=== PATIENT | male | born 1990 | race American Indian/Alaskan Native ===

== ENCOUNTER 2018-05-20 20:03 | Emergency (ER) | payer SELFPAY ==
[2018-05-20 21:37] LABS: Bacteria,Urine 1+ /HPF (Negative); Bilirubin,Urine NEG (Negative); Blood,Urine NEG (Negative); Color,Urine Yellow (Yellow); Mucus,Urine FEW /HPF; Protein,Urine <15 mg/dL mg/dL (Negative)
[2018-05-20 21:38] LABS: WBC,Urine > 182.0 /HPF (0.0-6.0)
[2018-05-21 00:05] VITALS: BP 146/86
[2018-05-21] MEDS ORDERED: ROCEPHIN IM ONE (00:17)
[2018-05-21] MEDS ORDERED: ZITHROMAX PO ONE (00:17)
[2018-05-21] MEDS ORDERED: XYLOCAINE 1% MPF 5 mL INFILTRATI ONE (00:17)
--- NOTE | 2018-05-21 00:21 | Emergency Department Report ---
ED Male HPI - General Chief complaint: Urogenital-Male Stated complaint: CHEST PAIN/PAINFUL URINATION Time Seen by Provider: 05/20/18 23:44 Source: patient Mode of arrival: Ambulatory Limitations: No Limitations - History of Present Illness Initial comments: 27-year-old -[place] male comes to the emergency room reporting had burning in his chest for one hour prior to arrival and relieved by Tums. Patient denies any nausea no vomiting no diaphoresis no dizziness no change of vision no radiation of the pain. Patient also complains of painful urination 3 days with yellowish discharge. Patient reports that he is sexually active with females unprotected one partner in the last 6 months. He has not ever have an STD. He denies any fever chills no nausea no vomiting no lymphs adenopathy in the groin area. MD Complaint: penile discharge, dysuria -: days(s) (3) Severity: severe Severity scale (0 -10): 10 Quality: burning Consistency: constant Improves with: none Worsens with: none discharge, dysuria. denies: swelling, mass, blood in urine, fever, nausea/ vomiting, incontinence - Related Data Sexually active: Yes (females unprotected) Previous Rx's Medication Instructions Recorded Last Taken Type Doxycycline [Vibramycin CAP] 100 mg PO Q12HR 10 Days #20 capsule 05/21/18 Unknown Rx Allergies Allergy/AdvReac Type Severity Reaction Status Date / Time shellfish derived Allergy Hives Verified 05/20/18 21:18 ED Review of Systems ROS: Stated complaint: CHEST PAIN/PAINFUL URINATION Other details as noted in HPI Genitourinary: dysuria, discharge ED Past Medical Hx - Past Medical History Previous Medical History?: No - Surgical History Past Surgical History?: No - Social History Smoking Status: Never Smoker Substance Use Type: None - Medications Home Medications: Home Medications Medication Instructions Recorded Confirmed Last Taken Type Doxycycline [Vibramycin CAP] 100 mg PO Q12HR 10 Days #20 capsule 05/21/18 Unknown Rx ED Physical Exam - General Limitations: No Limitations General appearance: alert, in no apparent distress - Head Head exam: Present: atraumatic, normocephalic - Eye Eye exam: Present: EOMI - exam: Present: urethral discharge (yellowish), circumcision. Absent: testicular tenderness, scrotal swelling External exam: Absent: swelling, lesions, bleeding - Extremities Exam Extremities exam: Present: normal inspection - Neurological Exam Neurological exam: Present: alert, oriented X3 - Psychiatric Psychiatric exam: Present: normal affect, normal mood - Skin Skin exam: Present: warm, dry, intact, normal color. Absent: rash ED Course Vital Signs 05/20/18 05/21/18 20:08 00:04 Temperature 99.1 F Pulse Rate 85 86 Respiratory 18 18 Rate Blood Pressure 148/83 Blood Pressure 146/86 [Right] O2 Sat by Pulse 95 97 Oximetry ED Medical Decision Making - Medical Decision Making Patient has been evaluated by this provider fast track. Chlamydia and gonorrhea samples have been obtained and sent to the lab. Rocephin and azithromycin has been ordered. We'll discharge patient on doxycycline 100 mg twice a day for 10 days. Discussed the patient he can bring his ID to medical records to obtain his culture results in 5-7 days. Discussed patient he needs to follow-up with the health department to have further testing for HIV and hepatitis B hepatitis C syphilis. Patient verbalizes understanding Critical care attestation.: If time is entered above; I have spent that time in minutes in the direct care of this critically ill patient, excluding procedure time. ED Disposition Clinical Impression: Penile discharge, STD (sexually transmitted disease), Atypical chest pain, Heartburn symptom Disposition: DC-01 TO HOME OR SELFCARE Is pt being admited?: No Does the pt Need Aspirin: No Condition: Stable Instructions: Chest Pain (ED), Safe Sex (ED), Sexually Transmitted Diseases (ED ) Additional Instructions: Complete antibiotics as prescribed. It is very important for you to follow-up at the health department so he can get further testing for HIV, hepatitis B, hepatitis C, syphilis and herpes. I have listed several of their numbers below. He can also bring your ID to medical records to obtain your culture results in 5-7 days. Prescriptions: Doxycycline [Vibramycin CAP] 100 mg PO Q12HR 10 Days #20 capsule Referrals: PRIMARY CARE, [Primary Care Provider] - 3-5 Days [facility] [Outside] - 3-5 Days [facility] [Outside] - 3[facility]5 Days [facility] [Outside] - 3-5 Days [facility] [Outside] - [facility] - [facility] Days [facility] [Outside] - 3-5 Days
== END 2018-05-21 00:52 | disposition home or self-care (01) ==
LOC: ED 20:03
DX: R07.89 Other chest pain (principal); R12 Heartburn; A64 Unspecified sexually transmitted disease; Z91.013 Allergy to seafood
CPT/HCPCS: 81001; 87086; 87591; 93005; 93010; 96372; 99283; J0696